=== PATIENT | female | born 1965 | race Caucasian/White ===

== ENCOUNTER 2017-07-24 13:28 | Outpatient (CLI) | payer MEDICARE ==
--- NOTE | 2017-07-24 17:42 | CARDIAC PROCEDURE NOTE ---
DATE OF SERVICE: 07/24/2017 Physician: MARYJANE Batista PROCEDURE: Stress echocardiogram. PROCEDURE SYMPTOMS: Chest pain, paroxysmal tachycardia. CARDIAC RISK FACTORS: Diabetes, hypertension, and hyperlipidemia. PREVIOUS CARDIAC PROCEDURES: None. CURRENT SYMPTOMATOLOGY: None. CLINICAL HISTORY: A 52-year-old moderately active female without known coronary artery disease. INITIAL RESTING VITAL SIGNS: Blood pressure 134/66, heart rate 68, height 67 inches, weight 262 pounds, BMI 40.58. PROCEDURE AND FINDINGS: The patient's identity and date verified. Consent signed. After resting echocardiogram images were obtained, the patient performed treadmill exercise using a Krzysztof protocol completing 6 minutes 22 seconds, and an estimated workload of 7.65 metabolic equivalents. Maximal blood pressure was 170/100 with a heart rate of 143 beats per minute or 85% of maximum predicted heart rate for age. The blood pressure response to exercise was within normal limits. The patient stopped because she was getting out of breath. The resting ECG demonstrated normal sinus rhythm. There was less than 0.[address] segment depression and no ectopy. Post-exercise images were obtained immediately on cessation of exercise. FINAL IMPRESSION: 1. Good quality test. 2. No ECG signs of ischemia, test incomplete, awaiting echocardiographic report. 3. Negative stress test clinically for angina. 4. No ectopy. cc: Frank De MD TD: 07/24/2017 17:27
[2017-07-28 13:30] VITALS: BP 136/86
== END 2017-07-24 13:29 | disposition home or self-care (01) ==
LOC: DI 13:28
PROVIDERS: ATTEND Family Medicine
DX: I47.9 Paroxysmal tachycardia, unspecified (principal); R07.89 Other chest pain
CPT/HCPCS: 93351

== ENCOUNTER 2018-07-04 13:05 | Emergency (ER) | payer MEDICARE, MEDICAID ==
--- NOTE | 2018-07-04 13:43 | ED Physician Documentation ---
PD HPI SKIN - Stated complaint Stated Complaint: ALLERGIC REACTION - Chief complaint Chief Complaint: Allergic Rx - History obtained from History obtained from: Patient - History of Present Illness Timing - onset: How many days ago (1-2 days of itching and swelling of face and hands. Had hives initially but that is improved. Taking Benadryl but still with some itching and swelling face and hands. No intraoral swelling.) Timing - duration: Days (2) Timing - details: Abrupt onset, Still present, Waxing and waning Location: Face, Bodywide (She had some itching and hives body wide but noticed it mainly on her face and neck. She denied any intraoral swelling or difficulty swallowing or breathing.) Quality / character: Itchy. No: Vesicular Improved by: Benadryl Contributing factors: Other (Onset was after doing some yard work and handling some dried grasses and noticed it initially on her arms and then face and neck.) Recently seen: Not recently seen Review of Systems Constitutional: denies: Fever, Chills Nose: denies: Rhinorrhea / runny nose, Congestion Throat: denies: Sore throat Cardiac: denies: Chest pain / pressure Respiratory: denies: Dyspnea, Cough GI: denies: Nausea, Vomiting Skin: reports: Rash PD PAST MEDICAL HISTORY - Past Medical History Past Medical History: Yes Cardiovascular: Hypertension, High cholesterol Respiratory: Asthma Endocrine/Autoimmune: Type 2 diabetes GI: GERD Psych: Depression, Anxiety Musculoskeletal: Rheumatoid arthritis, Chronic back pain, Other - Past Surgical History Past Surgical History: Yes Ortho: Spine surgery, 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, Mastectomy - Present Medications Home Medications: Ambulatory Orders Medication Instructions Recorded Confirmed Dexamethasone [Decadron] 4 mg PO DAILY #5 tablet 07/04/18 RX: Cetirizine [ZyrTEC] 10 mg PO DAILY #30 tablet 07/04/18 - Allergies Allergies/Adverse Reactions: Allergies Allergy/AdvReac Type Severity Reaction Status Date / Time grass pollen Allergy Hives Verified 07/04/18 13:17 metformin Allergy Emesis Verified 07/04/18 13:17 prednisone AdvReac Anxiety Verified 07/04/18 13:18 - Social History Does the pt smoke?: No Smoking Status: Never smoker Does the pt drink ETOH?: Yes Does the pt have substance abuse?: No - Immunizations Immunizations are current?: Yes - POLST Patient has POLST: No PD ED PE NORMAL - Vitals Vital signs reviewed: Yes - General General: Alert and oriented X 3, No acute distress, Well developed/nourished - HEENT HEENT: Other (Mild puffiness in the cheeks and around the eyes. No intraoral swelling. Normal voice and breathing. There is some mild edema on the both hands. No obvious hives or rash noted at this time. Lungs are clear without wheeze or crackles.) - Respiratory Respiratory: Clear bilaterally - Abdomen Abdomen: Soft, Non tender Results - Vitals Vitals: Vital Signs - 24 hr 07/04/18 07/04/18 13:18 14:25 Temperature 36.5 C 36.5 C Heart Rate 77 76 Respiratory 16 16 Rate Blood Pressure 149/86 H 140/88 H O2 Saturation 94 94 Oxygen O2 Source Room air PD MEDICAL DECISION MAKING - ED course Complexity details: considered differential (She had hives and swelling of her face and hands without any real angioedema per se. It does sound like environmental allergies as it initiated after her being handling some dried grasses and doing yard work. We will treat her with steroids as well as antihistamines. I do not think it is related to her lisinopril.), d/w patient Departure - Departure Disposition: 01 Home, Self Care Clinical Impression: Environmental allergies Condition: Stable Record reviewed to determine appropriate education?: Yes Instructions: ED Allergic Reaction General Other Follow-Up: EMA HERNANDEZ ARNP [Primary Care Provider] - Prescriptions: RX: Cetirizine [ZyrTEC] 10 mg PO DAILY #30 tablet Dexamethasone [Decadron] 4 mg PO DAILY #5 tablet Comments: Use the dexamethasone steroid daily for 5 more days. Continue the Zantac you had picked up. You can add cetirizine antihistamine daily as well and continue that for the next month due to your environmental allergies. Add Benadryl if needed for hives and itching short-term. Recheck if not improved over the next few days. Discharge Date/Time: 07/04/18 14:25
[2018-07-04] MEDS ORDERED: DEXAMETHASONE 10 MG/ML VIAL PO STA (14:09)
[2018-07-04] MEDS ORDERED: CETIRIZINE 10 MG TABLET PO STA (14:09)
[2018-07-04] MEDS ORDERED: CHERRY SYRUP 10 ML UDC PO ONE (14:09)
[2018-07-04 14:27] VITALS: BP 140/88
== END 2018-07-04 14:25 | disposition home or self-care (01) ==
LOC: ED 13:05
DX: T78.49XA Other allergy, initial encounter (principal); X58.XXXA Exposure to other specified factors, initial encounter; E11.9 Type 2 diabetes mellitus without complications; I10 Essential (primary) hypertension; E78.00 Pure hypercholesterolemia, unspecified
CPT/HCPCS: 99283; A9270